=== PATIENT | male | born 1985 | race Caucasian/White ===

== ENCOUNTER 2017-01-17 17:17 | Emergency (ER) | payer MEDICAID ==
[~2017-01-17] VITALS: Ht 165.1 cm; Wt 84.4 kg
[2017-01-17 19:17] VITALS: BP 145/89
== END 2017-01-17 19:17 | disposition home or self-care (01) ==
LOC: ED 17:17 → EDBD 17:17 → ED 19:17
DX: S51.811A Laceration without foreign body of right forearm, initial encounter (principal); W26.8XXA Contact with other sharp object(s), not elsewhere classified, initial encounter; Y93.89 Activity, other specified; Y99.8 Other external cause status; Y92.89 Other specified places as the place of occurrence of the external cause
CPT/HCPCS: 90715; J2001

== ENCOUNTER 2019-03-06 17:03 | Emergency (ER) | payer MEDICAID ==
[~2019-03-06] VITALS: Ht 165.1 cm; Wt 85.3 kg
[2019-03-06 17:21] VITALS: Ht 165.1 cm; Wt 85.3 kg
[2019-03-06 19:42] VITALS: BP 127/87
== END 2019-03-06 19:42 | disposition home or self-care (01) ==
LOC: ED 17:03
DX: R20.2 Paresthesia of skin (principal)